=== PATIENT | female | born 2000 | race Caucasian/White ===

== ENCOUNTER → 2020-10-18 | Day surgery (SDC) | payer BC ==
[~2020-10-18] MED LIST: ACETAMINOPHEN 500 MG TABLET PO ONE; DEXAMETHASONE SOD PHOS 20 MG/5 ML VIAL. ONE; GLYCOPYRROLATE 1 MG/5 ML VIAL. ONE; IPRATRPIUM/ALBUTEROL 0.5/2.5MG 3 ML NEBU. NEB PRN; IV RINGERS SOLUTION,LACTATED 1,000 ML IV SCH; KETOROLAC 30 MG/ML VIAL. ONE; LIDOCAINE 1%/EPI 1:100,000 10 ML VIAL. IJ ONE; LIDOCAINE 1%/EPI 1:100,000 20 ML VIAL. ONE; LIDOCAINE 2% PF 5 ML VIAL. ONE; MIDAZOLAM HCL PF 2 MG/2 ML VIAL. IV ONE; MIDAZOLAM HCL PF 2 MG/2 ML VIAL. ONE; NEOSTIGMINE 10 MG/10 ML VIAL. ONE; ONDANSETRON PF 4 MG/2 ML VIAL. IV PRN; ONDANSETRON PF 4 MG/2 ML VIAL. ONE; PROPOFOL 10,000 MCG/ML (20ML) VIAL IV ONE; ROCURONIUM 50 MG/5 ML VIAL. ONE; SEVOFLURANE 31 TO 60 MINUTES. IH ONE
[2020-10-18 08:05] LABS: U PREG PATIENT NEGATIVE (NEG)
--- NOTE | 2020-10-18 09:35 | OP ---
DATE OF SURGERY: 10/18/2020 PREOPERATIVE DIAGNOSIS: Chronic tonsillitis. POSTOPERATIVE DIAGNOSIS: Chronic tonsillitis with hypertrophy. PROCEDURE PERFORMED: Tonsillectomy. INDICATIONS: Chronic infection and enlargement of the tonsils. ANESTHESIA: General anesthetic. BLOOD LOSS: Approximately 20-25 mL. DESCRIPTION OF PROCEDURE: The patient was brought to the operating room. She was transferred to the operating room table and placed in supine position. There, she was placed under general anesthetic and when her airway was secure and vital signs were all stable, the table was rotated 90 degrees. Her mouth was braced open with a Fransisco mouth gag and the tonsil tissue was observed to be abundant and crowding the airspace. Using a tonsil needle, 1% lidocaine with epinephrine was injected into the tonsil tissue and the surrounding soft tissue. The left tonsil was approached first. It was grasped to a medial position with a straight Allis and then a shallow incision was created with a #12 knife blade and dissection was carried out with a Kimberlyn dissector. The Coblator was then applied and it facilitated tissue separation and bleeding controlled. The tonsil was removed and bleeding controlled with the Coblator. After the left tonsil was removed, the right tonsil was addressed. The tonsil was then retracted medially and a shallow incision created. Retraction was accomplished with an Allis and the soft tissue was using a Kimberlyn dissector. The Coblator was then used to remove the tonsil and to control bleeding. When both tonsils were removed, the tonsil fossae were inspected. There was no active bleeding occurring. 1% lidocaine with epinephrine was then injected into the soft tissue for postoperative comfort. The airway was then examined. The nose was cleared and irrigated and the procedure was completed. The patient was recovered from her anesthesia and taken to the recovery room in stable condition. AUNG DR: Serg TID: [id number]
--- NOTE | 2020-10-18 09:40 | NUR ---
Patient states need to urinate. Placed on bedpan. Patient unable to void. Will monitor.
--- NOTE | 2020-10-18 09:45 | NUR ---
patient awake and able to ambulate by wheelchair to restroom. Patient able to void large amount.
[2020-10-18 10:15] VITALS: BP 111/68
--- NOTE | 2020-10-20 15:08 | PATHOLOGY ---
[facility] Accession Number: [id number] . 01 Material submitted: . tonsil - BILATERAL TONSILS. Modifiers: bilateral . 01 Clinical history: . CHRONIC TONSILLITIS TONSILLECTOMY . 02 Diagnosis: Bilateral palatine tonsils, excision: - Chronic hyperplastic tonsillitis, with focal presence of colonies of Actinomyces and acute inflammation within tonsillar crypts. (JPM:eugene; 10/19/2020) S 10/19/2020 1436 Local . 02 Electronically signed: . Abraham Caballero MD, Pathologist NPI- [id number] . 01 Gross description: . The specimen is received in formalin, labeled "Linda Becerra, bilateral tonsils". Received are two palatine tonsils measuring 3.1 x 2.6 x 1.6 and 2.9 x 1.8 x 1.6 cm in greatest dimensions. Sectioning reveals pink-murrell, homogenous cut surfaces throughout with typical crypts identified. No distinct nodules or lesions are noted grossly. The specimen is submitted representatively in cassette A1-A2. ([facility]; 10/18/2020) NRI/NRI 10/18/2020 1753 Local . 02 Pathologist provided ICD-10: J35.1, J35.01, J03.90 . 02 CPT . 905088 Specimen Comment: A courtesy copy of this report has been sent to [phone] Specimen Comment: Report sent to Performed at: 01 [facility] [address], [place] [id number] MD Juan Ramon Dubois MD Phone: [phone] Performed at: 02 [facility] [address] [place], [place] [id number] MD Abraham Caballero MD Phone: [phone]
== END | disposition home or self-care (01) ==
LOC: SURG 07:36
PROVIDERS: ATTEND Otolaryngology
DX: J35.01 Chronic tonsillitis (principal); F17.210 Nicotine dependence, cigarettes, uncomplicated; Z20.822 Contact with and (suspected) exposure to COVID-19
CPT/HCPCS: 42826; 81025; C9803; J2250; J3010; J7120; U0003

== ENCOUNTER 2020-11-01 02:44 | Emergency (ER) | payer BC ==
[~2020-11-01] VITALS: Ht 154.9 cm; Wt 77.3 kg
[2020-11-01 02:53] VITALS: BP 150/97
--- NOTE | 2020-11-01 02:57 | PHYS DOC ---
Adult General Chief Complaint Chief Complaint: DENTAL PROBLEM HPI HPI Patient is a 20-year-old female who presents with dental pain. States has been going on about a day and her top left, 7 out of 10, dull and achy in nature. Denies any recent traumas, illnesses, fevers, pain or trouble swallowing. Den ies any recent dental procedures. States she did have her tonsils taken out about 3 weeks ago without complication. States she has not seen a dentist. States she took some ibuprofen couple hours ago. Review of Systems Review of Systems Review of systems otherwise unremarkable except noted in HPI Allergies Allergies Allergies Coded Allergies Type Severity Reaction Last Updated Verified No Known Drug Allergies 10/18/20 No Physical Exam Physical Exam Constitutional: Well developed, well nourished, no acute distress, non-toxic appearance. [] HENT: Normocephalic, atraumatic, bilateral external ears normal, oropharynx moist, bilateral erythema with some bilateral oral exudates, nose normal. [] Eyes: conjunctiva normal, no discharge. [] Neck: Normal range of motion, no tenderness, supple, no stridor, cervical lymphadenopathy. [] Neurologic: Alert and oriented X 3, normal motor function, normal sensory function, no focal deficits noted. [] Psychologic: Affect normal, judgement normal, mood normal. [] EKG EKG [] Radiology/Procedures Radiology/Procedures [] Heart Score C/O Chest Pain: No Risk Factors: Risk Factors: DM, Current or recent (<one month) smoker, HTN, HLP, family history of CAD, obesity. Risk Scores: Risk Factors: DM, Current or recent (<one month) smoker, HTN, HLP, family history of CAD, obesity. Course & Med Decision Making Course & Med Decision Making Patient is a 20-year-old female presents with a chief complaint of dental pain Vital signs not concerning. Physical exam noted above. Given oral pain medicine. Offered dental block but patient declined. Patient with Centor criteria of 4 suggestive of strep throat. Patient stated that as when she had her tonsils out because she had chronic strep throat. Started on amoxicillin in the ED. Given contact information for local free dentist and emergency dentist. Advised to call in the morning to set up a follow-up to discuss need for filling versus root canal versus extraction. Also advised to call primary care physician in the morning to update on ED visit and set up a follow-up as soon as possible. Given recommendations for pain management at home. Gave return precautions to the ED. Patient grateful, verbalized understanding and agreed with plan of discharge. [] Dragon Disclaimer Dragon Disclaimer This electronic medical record was generated, in whole or in part, using a voice recognition dictation system. Departure Departure: Impression: Primary Impression: Pain, dental Additional Impression: Strep pharyngitis Disposition: HOME / SELF CARE / HOMELESS Condition: GOOD Referrals: PCP,NO (PCP) MOI KENNEDY MD Patient Instructions: Dental Pain Additional Instructions: Thank you for coming into the emergency department tonight and allowing us to take care of you. Please read the attached information to go back over things we discussed. You can begin a Tylenol, ibuprofen and Orajel regimen as discussed. You were given contact information for local dentist and the emergency dentist, please call first thing in the morning to set up an appointment as soon as possible discussed the need for dental intervention including fillings, root canal versus extraction. Please come back to the ED with new or concerning symptoms as discussed. Scripts Amoxicillin (AMOXICILLIN) 500 Mg Capsule 1 CAP PO BID for strep throat for 10 Days, #20 CAP Prov: MABLE WRIGHT MD 11/01/20 Problem Qualifiers MABLE WRIGHT MD Nov 01, 2020 02:57
[2020-11-01] MEDS ORDERED: AMOX500C PO (03:04)
[2020-11-01] MEDS ORDERED: oxyCODONE/APAP 5/325 1 TAB TABLET PO ONE (03:30)
[2020-11-01] MEDS ORDERED: AMOXICILLIN 250 MG CAPSULE PO ONE (03:30)
[2020-11-01] MEDS ORDERED: BENZOCAINE ONE 20% MUCOSAL SPRAY. MM (03:30)
== END 2020-11-01 03:10 | disposition home or self-care (01) ==
LOC: ER 02:44
DX: K08.89 Other specified disorders of teeth and supporting structures (principal); J02.0 Streptococcal pharyngitis
CPT/HCPCS: 99284

== ENCOUNTER 2021-04-02 00:34 | Emergency (ER) | payer BC ==
[~2021-04-02] VITALS: Ht 154.9 cm; Wt 77.3 kg
[~2021-04-02 00:34] MED LIST changes: -ACETAMINOPHEN 500 MG TABLET PO ONE; +AMOX500C PO; -DEXAMETHASONE SOD PHOS 20 MG/5 ML VIAL. ONE; -GLYCOPYRROLATE 1 MG/5 ML VIAL. ONE; -IPRATRPIUM/ALBUTEROL 0.5/2.5MG 3 ML NEBU. NEB PRN; -IV RINGERS SOLUTION,LACTATED 1,000 ML IV SCH; -KETOROLAC 30 MG/ML VIAL. ONE; -LIDOCAINE 1%/EPI 1:100,000 10 ML VIAL. IJ ONE; -LIDOCAINE 1%/EPI 1:100,000 20 ML VIAL. ONE; -LIDOCAINE 2% PF 5 ML VIAL. ONE; -MIDAZOLAM HCL PF 2 MG/2 ML VIAL. IV ONE; -MIDAZOLAM HCL PF 2 MG/2 ML VIAL. ONE; -NEOSTIGMINE 10 MG/10 ML VIAL. ONE; -ONDANSETRON PF 4 MG/2 ML VIAL. IV PRN; -ONDANSETRON PF 4 MG/2 ML VIAL. ONE; -PROPOFOL 10,000 MCG/ML (20ML) VIAL IV ONE; -ROCURONIUM 50 MG/5 ML VIAL. ONE; -SEVOFLURANE 31 TO 60 MINUTES. IH ONE
--- NOTE | 2021-04-02 00:42 | PHYS DOC ---
Past History Past Surgical History: Tonsillectomy Drug Use: Opiates General Adult EDM: Chief Complaint: OVERDOSE HPI: HPI: ",, I was snoting some street Percocet... And I guess I passed out.. " Patient is a 20 year old female who presents with hx of syncope after snorting street Percocet narcotic. Patient denies any travel. No specific ill contacts. Denies any immunosuppression. Has had COVID vaccination x1. Has had flu vaccination for this season. Patient states is not the first time she tried illicit drugs . Pt. states she usually knows her body and tolerance to the drugs. Patient has not follow-up with primary care. Review of Systems: Review of Systems: Constitutional: Denies fever or chills Eyes: Denies change in visual acuity HENT: Denies nasal congestion or sore throat Respiratory: Denies cough or shortness of breath Cardiovascular: Denies chest pain or edema GI: Denies abdominal pain, nausea, vomiting, bloody stools or diarrhea : Denies dysuria Musculoskeletal: Denies back pain or joint pain Integument: Denies rash Neurologic: Denies headache, focal weakness or sensory changes. Complains of syncope after snorting street Percocet Endocrine: Denies polyuria or polydipsia Lymphatic: Denies swollen glands Psychiatric: Denies depression or anxiety Family History: Family History: Noncontributory Current Medications: Current Meds: See nursing for home meds Allergies: Allergies: Allergies Coded Allergies Type Severity Reaction Last Updated Verified No Known Drug Allergies 10/18/20 No Physical Exam: PE: Constitutional:, no acute distress, non-toxic appearance. [] HENT: Normocephalic, atraumatic, bilateral external ears normal, oropharynx moist, no oral exudates, nose injected turbinates.. Nose ring and nose studs Eyes: PERRLA, EOMI, conjunctiva normal, no discharge. [] Neck: Normal range of motion, no tenderness, supple, no stridor. [] Cardiovascular:Heart rate regular rhythm, no murmur [] Lungs & Thorax: Bilateral breath sounds clear to auscultation [] Abdomen: Bowel sounds normal, soft, no tenderness, no masses, no pulsatile masses. [] Skin: Warm, dry, no erythema, no rash. Eczema on left forearm. Tattoo's Back: No tenderness, no CVA tenderness. [] Extremities: No tenderness, no cyanosis, no clubbing, ROM intact, no edema. DTRs +2 patella brachial. Neurologic: Alert and oriented X 3, normal motor function, normal sensory function, no focal deficits noted. [] Psychologic: Affect tearful, judgement normal, mood normal. [] EKG: EKG: My interpretation of EKG shows a sinus rhythm at 77 bpm. Does have some bimodal P waves in left leads. But no findings acute STEMI of contralateral changes. Time of EKG is 00: 41 hours []. Radiology/Procedures: Radiology/Procedures: [] Heart Score: C/O Chest Pain: N/A Risk Factors: Risk Factors: DM, Current or recent (<one month) smoker, HTN, HLP, family history of CAD, obesity. Risk Scores: Score 0 - 3: 2.5% MACE over next 6 weeks - Discharge Home Score 4 - 6: 20.3% MACE over next 6 weeks - Admit for Clinical Observation Score 7 - 10: 72.7% MACE over next 6 weeks - Early Invasive Strategies Course & Med Decision Making: Course & Med Decision Making Pertinent Labs and Imaging studies reviewed. (See chart for details) Avoid further illicit drug use. Consider follow up with [facility] [phone]. Impression: 1. Drug Abuse 2. Syncope after recreational drug use [] Dragon Disclaimer: Dragon Disclaimer: This electronic medical record was generated, in whole or in part, using a voice recognition dictation system. Departure Departure: Referrals: PCP,NO (PCP) Dragon Disclaimer This chart was dictated in whole or in part using Voice Recognition software in a busy, high-work load, and often noisy Emergency Department environment. It may contain unintended and wholly unrecognized errors or omissions. SILKE BRANNON MD Apr 02, 2021 00:42
[2021-04-02 01:32] VITALS: BP 138/91
--- NOTE | 2021-04-02 01:47 | EKG ---
[address] [address] Test Date: 2021-04-02 Test Time: 00:41:51 Pat Name: FREDO BUTLER Department: Room: Gender: F Crystal Growing Technician: : 2000 Requested By: SILKE BRANNON Order Number: [id number] Reading MD: Olayinka Baig Measurements Intervals [place] Rate: 77 P: 64 MA: 140 QRS: 21 QRSD: 84 T: 16 QT: 370 QTc: 420 Interpretive Statements SINUS RHYTHM LEFT ATRIAL ABNORMALITY ABNORMAL ECG RI6.02 No previous ECG available for comparison Electronically Signed On 04-03-2021 9:24:18 LACQUER SPRAYER by Olayinka Baig
== END 2021-04-02 01:44 | disposition home or self-care (01) ==
LOC: ER 00:34
DX: R55 Syncope and collapse (principal); F11.10 Opioid abuse, uncomplicated
CPT/HCPCS: 82947; 93005; 99284

== ENCOUNTER 2021-06-23 20:29 | Emergency (ER) | payer BC, OTHER ==
[~2021-06-23] VITALS: Ht 154.9 cm; Wt 77.8 kg
[2021-06-23 20:29] VITALS: BP 131/89
--- NOTE | 2021-06-23 20:49 | PHYS DOC ---
Past History Past Surgical History: Tonsillectomy Alcohol Use: Occasionally Drug Use: Opiates General Adult EDM: Chief Complaint: OVERDOSE HPI: HPI: Patient is a 21-year-old female who is in PD custody who presents to the emerg ency department today for medical clearance for incarceration. Patient apparently had an overdose on Percocets was found outside of [address] [place] [address] and she received 2 doses of Narcan with the second 1 being at 1910. Patient immediately woke up. She is alert and oriented x4 and answering all questions appropriately. Patient has no complaints at this time. She denies abdominal pain, nausea, vomiting, chest pain, shortness of breath, vaginal bleeding. Patient reports that she did have a positive test at her doctor's office and has an appointment with [facility]. Patient reports that her last menstrual period was May 03. She is . Review of Systems: Review of Systems: Respiratory: See HPI Cardiovascular: See HPI GI: See HPI : See HPI Neurologic: See HPI Allergies: Allergies: Allergies Coded Allergies Type Severity Reaction Last Updated Verified No Known Drug Allergies 04/02/21 No Physical Exam: PE: Constitutional: Well developed, well nourished, no acute distress, non-toxic appearance. [] HENT: Normocephalic, atraumatic, bilateral external ears normal, oropharynx moist, no oral exudates, nose normal. [] Eyes: PERRL, EOMI, conjunctiva normal, no discharge. [] Neck: Normal range of motion, no tenderness, supple, no stridor. [] Cardiovascular:Heart rate tachycardic rhythm, no murmur [] Lungs & Thorax: Bilateral breath sounds clear to auscultation [] Abdomen: soft and flat Skin: Warm, dry, no erythema, no rash. [] Back: No tenderness, normal ROM Extremities: No tenderness, no cyanosis, no clubbing, ROM intact, no edema. [] Neurologic: Alert and oriented X 3, normal motor function, normal sensory function, no focal deficits noted. [] Psychologic: Affect normal, judgement normal, mood normal. [] Current Patient Data: Vital Signs: Vital Signs Date Time Temp Pulse Resp B/P (MAP) Pulse Ox O2 Delivery O2 Flow Rate FiO2 06/23/21 20:29 97.7 109 20 100 EKG: EKG: EKG performed by ER staff at 2051 shows sinus tach cardia with a rate of 108, QTc is 441, no STEMI read by Dr. Rashid at 2058 [] Radiology/Procedures: Radiology/Procedures: [] Heart Score: C/O Chest Pain: No Risk Factors: Risk Factors: DM, Current or recent (<one month) smoker, HTN, HLP, family history of CAD, obesity. Risk Scores: Score 0 - 3: 2.5% MACE over next 6 weeks - Discharge Home Score 4 - 6: 20.3% MACE over next 6 weeks - Admit for Clinical Observation Score 7 - 10: 72.7% MACE over next 6 weeks - Early Invasive Strategies Course & Med Decision Making: Course & Med Decision Making Pertinent Labs and Imaging studies reviewed. (See chart for details) [] Patient presents to the emergency department for medical clearance for incarceration after she overdosed on opiates. Patient has no complaints at this time. Patient received narcan >90 minutes ago. Patient alert and oriented x4. Patient to be discharged to PD custody. I discussed with patient all findings and diagnostic testing as well as the need to follow-up with PCP for further evaluation and treatment or return to the ER if any new or worsening symptoms. Strict return precautions were also discussed at length. Patient voiced understanding and agreement with the plan. Patient is hemodynamically stable at the time of disposition. Melida Disclaimer: Melida Disclaimer: This electronic medical record was generated, in whole or in part, using a voice recognition dictation system. Departure Departure: Impression: Primary Impression: Medical clearance for incarceration Disposition: HOME / SELF CARE / HOMELESS Condition: GOOD Referrals: PCP,NO (PCP) Patient Instructions: Opiate Dependence Additional Instructions: You were seen in the emergency department following an overdose. You are alert and oriented had no complaints. Please follow-up with your primary care provider as needed. JAYCOB VENEGAS APRN Jun 23, 2021 20:48
--- NOTE | 2021-06-24 02:42 | EKG ---
[address] [address] Test Date: 2021-06-23 Test Time: 20:52:45 Pat Name: FREDO BUTLER Department: Room: Gender: F Devops Solutions Architect: EVELYNE : 2000 Requested By: JAYCOB VENEGAS Order Number: [id number] Reading MD: Measurements Intervals [place] Rate: 108 P: 48 VT: 144 QRS: 43 QRSD: 86 T: 62 QT: 326 QTc: 441 Interpretive Statements SINUS TACHYCARDIA QRS(T) CONTOUR ABNORMALITY CONSIDER ANTEROLATERAL MYOCARDIAL DAMAGE POSSIBLY ABNORMAL ECG RI6.01 No previous ECG available for comparison
== END 2021-06-23 21:21 | disposition home or self-care (01) ==
LOC: ER 20:29
DX: O26.891 Other specified pregnancy related conditions, first trimester (principal); Z3A.00 Weeks of gestation of pregnancy not specified
CPT/HCPCS: 81025; 93005; 99283

== ENCOUNTER → 2021-06-23 | Outpatient (CLI) | payer OTHER | LOC: LAB 20:07 | DX: Z02.83 Encounter for blood-alcohol and blood-drug test (principal) | CPT/HCPCS: 36415 ==